=== PATIENT | male | born 1980 | race Caucasian/White ===

== ENCOUNTER 2016-07-08 23:58 | Emergency (ER) | payer OTHER ==
[~2016-07-08] VITALS: Ht 182.9 cm; Wt 97.5 kg
[2016-07-09 00:13] VITALS: BP 130/79
== END 2016-07-09 02:00 | disposition left against medical advice (07) ==
LOC: ER 07-09 00:04
DX: S09.90XA Unspecified injury of head, initial encounter (principal); W22.8XXA Striking against or struck by other objects, initial encounter; Y93.89 Activity, other specified; Y92.89 Other specified places as the place of occurrence of the external cause; Y99.8 Other external cause status
CPT/HCPCS: A4606; Z7610

== ENCOUNTER 2016-08-20 21:17 | Emergency (ER) | payer OTHER ==
[~2016-08-20] VITALS: Ht 180.3 cm; Wt 90.7 kg
--- NOTE | 2016-08-20 21:30 | NUR ---
PT SELF PRESENTS TO ER BED 15. C/O SI AND HI. PLAN ON RUNNING THROUGH TRAFFIC. PT APPEARS AGITATED. DENIES PAIN. STABLE VITALS. AWAITING MD BRADY.
--- NOTE | 2016-08-20 21:55 | NUR ---
YOUTH ACCOMMODATION SUPPORT WORKER AT BEDSIDE FOR BLOOD DRAW.
[2016-08-20 22:04] LABS: BASOPHILS # (AUTO) 0.1 /CMM (0.0-0.2); BASOPHILS % (AUTO) 0.7 % (0.0-2.0); EOSINOPHILS # (AUTO) 0.2 /CMM (0.0-0.7); EOSINOPHILS % (AUTO) 1.9 % (0.0-6.0); HEMATOCRIT 48 % (39-51); LYMPHOCYTES # (AUTO) 2.6 /CMM (0.8-4.8); LYMPHOCYTES % (AUTO) 22.8 % (20.0-44.0); MEAN CORPUSCULAR HEMOGLOBIN 30 PG (26.0-33.0); MEAN CORPUSCULAR HGB CONC 33 g/dl (31.0-36.0); MEAN CORPUSCULAR VOLUME 89 fL (80-96); MONOCYTES # (AUTO) 0.5 /CMM (0.1-1.30); MONOCYTES % (AUTO) 4.3 % (2.0-12.0); NEUTROPHILS # (AUTO) 8.1 /CMM (1.8-8.9); NEUTROPHILS % (AUTO) 70.3 % (43.0-81.0); PLATELET COUNT (AUTO) 370 /CMM (150-450); RDW COEFFICIENT OF VARIATION 13.8 (11.5-15.0); RED BLOOD CELL COUNT(AUTO) 5.38 MIL/uL (4.5-6.0); WHITE BLOOD COUNT (AUTO) 11.6 K/uL (4.3-11.0)
--- NOTE | 2016-08-20 22:05 | NUR ---
PT REFUSING TO PROVIDE URINE SAMPLE. CURSING ON STAFF.
[2016-08-20 22:15] LABS: CALCIUM, SERUM 9.1 mg/dL (8.5-10.1); CREATININE 0.9 mg/dL (0.6-1.3); POTASSIUM 3.6 mmol/L (3.5-5.1)
[2016-08-20 22:19] LABS: ALBUMIN 4.1 g/dL (3.4-5.0); BILIRUBIN,DIRECT 0.1 mg/dL (0.0-0.2); BILIRUBIN,TOTAL 0.3 mg/dL (0.2-1.0); SALICYLATE 4.7 mg/dL (2.8-20.0); TOTAL PROTEIN, SERUM 7.9 g/dL (6.4-8.2)
[2016-08-20 23:21] LABS: APPEARANCE,URINE CLEAR (CLEAR); BILIRUBIN,URINE NEGATIVE (NEGATIVE); BLOOD, URINE TRACE Ery/uL (NEGATIVE); COLOR,URINE YELLOW (YELLOW); KETONES,URINE NEGATIVE (NEGATIVE); LEUKOCYTE ESTERASE ,URINE NEGATIVE (NEGATIVE); NITRITE, URINE NEGATIVE (NEGATIVE); PROTEIN,URINE NEGATIVE (NEGATIVE); UGLUCOSE NEGATIVE (NEGATIVE); UROBILINOGEN,URINE 0.2 EU/dL (0.2)
--- NOTE | 2016-08-20 23:22 | NUR ---
report to charge nurse meng for piedad.
[2016-08-20 23:33] LABS: CANNABINOID, URINE NEGATIVE (NEGATIVE); PHENCYCLIDINE SCREEN,URINE NEGATIVE (NEGATIVE)
--- NOTE | 2016-08-20 23:48 | NUR ---
CALLED ART FOR PSYCH EVAL, ETA 1 HOUR
[2016-08-20 23:54] LABS: WBC,URINE 0-2 /HPF (0-3)
[2016-08-20 23:55] LABS: ADD URINE CULTURE NO; BACTERIA,URINE None seen /HPF (None Seen); SQUAMOUS EPITHELIAL CELL,UR Rare /HPF (None Seen)
--- NOTE | 2016-08-21 00:59 | NUR ---
patient resting in er bed, nad noted, will continue to monitor monitor
[2016-08-21 02:13] VITALS: BP 141/60
--- NOTE | 2016-08-21 02:33 | NUR ---
report given to [facility] for report for piedad pt will go to 3 [facility] 302.2 md [place] 1865 for DTS
--- NOTE | 2016-08-21 03:01 | NUR ---
CALLED CHARLY FOR TRANSPORT TO [facility], ETA 60-90 MIN
--- NOTE | 2016-08-21 04:50 | NUR ---
report given to emt for tranasport.
== END 2016-08-21 04:51 ==
LOC: ER 21:27
DX: R45.851 Suicidal ideations (principal); F20.9 Schizophrenia, unspecified
CPT/HCPCS: 36415; 80048; 80076; 80305; 80329; 81001; 85025; 99285; A4606; G0480 ×2; Z7610; 81000-TC; G6039-TC

== ENCOUNTER → 2019-03-10 | Emergency (ER) | payer OTHER ==
[~2019-03-10] VITALS: Ht 172.7 cm; Wt 75.7 kg
--- NOTE | 2019-03-10 03:06 | NUR ---
BIB AMBULANCE DUE TO PATIENT WANTED TO INTO TRAFFIC. PUT ON BED COMFORTABLY. POLICE AT BEDSIDE INTEROGATING THE PATIENT.
--- NOTE | 2019-03-10 03:13 | NUR ---
SEEN AND EXAMINED BY
[2019-03-10 03:30] LABS: APPEARANCE,URINE Clear (CLEAR); BILIRUBIN,URINE Negative (NEGATIVE); BLOOD, URINE Moderate Ery/uL (NEGATIVE); COLOR,URINE Yellow (YELLOW); KETONES,URINE Trace (NEGATIVE); LEUKOCYTE ESTERASE ,URINE Negative (NEGATIVE); NITRITE, URINE Negative (NEGATIVE); PH,URINE 5.5 (5.0-8.0); PROTEIN,URINE Negative (NEGATIVE); UGLUCOSE Negative (NEGATIVE); UROBILINOGEN,URINE 0.2 EU/dL (0.2)
[2019-03-10 03:37] LABS: BASOPHILS # (AUTO) 0.1 /CMM (0.0-0.2); BASOPHILS % (AUTO) 1.2 % (0.0-2.0); EOSINOPHILS % (AUTO) 0.1 % (0.0-6.0); HEMATOCRIT 48 % (39-51); HEMOGLOBIN 16.4 g/dL (13.5-17.5); LYMPHOCYTES # (AUTO) 2.9 /CMM (0.8-4.8); LYMPHOCYTES % (AUTO) 25.5 % (20.0-44.0); MEAN CORPUSCULAR HGB CONC 34 g/dl (31.0-36.0); MEAN CORPUSCULAR VOLUME 90 fL (80-96); MONOCYTES # (AUTO) 0.6 /CMM (0.1-1.30); NEUTROPHILS # (AUTO) 7.8 /CMM (1.8-8.9); NEUTROPHILS % (AUTO) 68.2 % (43.0-81.0); PLATELET COUNT (AUTO) 407 /CMM (150-450); RED BLOOD CELL COUNT(AUTO) 5.27 MIL/uL (4.5-6.0); WHITE BLOOD COUNT (AUTO) 11.5 K/uL (4.3-11.0)
[2019-03-10 03:40] LABS: CALCIUM, SERUM 8.2 mg/dL (8.5-10.1); POTASSIUM 3.6 mmol/L (3.5-5.1)
[2019-03-10 03:50] LABS: BACTERIA,URINE None seen /HPF (None Seen); SQUAMOUS EPITHELIAL CELL,UR Few /HPF (None Seen); WBC,URINE 0-2 /HPF (0-3)
[2019-03-10 03:53] LABS: ALBUMIN 4.3 g/dL (3.4-5.0); BILIRUBIN,DIRECT 0.1 mg/dL (0.0-0.2); BILIRUBIN,TOTAL 0.2 mg/dL (0.2-1.0); SALICYLATE 3.5 mg/dL (2.8-20.0); TOTAL PROTEIN, SERUM 8.3 g/dL (6.4-8.2)
[2019-03-10 05:42] VITALS: BP 120/83
--- NOTE | 2019-03-10 10:42 | NUR ---
Patient eloped from facility. ER MD notified.
== END | disposition left against medical advice (07) ==
LOC: ER 02:42
DX: R45.851 Suicidal ideations (principal); F17.200 Nicotine dependence, unspecified, uncomplicated
CPT/HCPCS: 36415; 80048; 80076; 80305; 80307; 80329; 81001; 85025; 99284; 99406; G0480; 81000-TC

== ENCOUNTER 2021-03-26 23:52 | Emergency (ER) | payer OTHER ==
--- NOTE | 2021-03-27 01:44 | NUR ---
CALLED FOR TRIAGE NOT IN WAITNG ROOM.
--- NOTE | 2021-03-27 02:06 | NUR ---
CALLED FOR TRIAGE NOT IN WAITING ROM
--- NOTE | 2021-03-27 02:30 | NUR ---
CALLED FOR TRIAGE NOT IN WAITING ROOM.
== END 2021-03-27 03:07 | disposition left against medical advice (07) ==
LOC: ER 23:55
DX: Z53.21 Procedure and treatment not carried out due to patient leaving prior to being seen by health care provider (principal)

== ENCOUNTER 2021-03-27 07:27 | Emergency (ER) | payer OTHER ==
[~2021-03-27] VITALS: Ht 180.3 cm; Wt 117.9 kg
--- NOTE | 2021-03-27 07:40 | NUR ---
Patient came in to the er c/o +SI " i want to run through traffic", denies HI. On room air, breathing evenly and unlabored. Kept comfortable, will continue to monitor accordingly.
--- NOTE | 2021-03-27 07:53 | NUR ---
urine collected and sent to lab.
[2021-03-27 08:24] LABS: BASOPHILS # (AUTO) 0.1 K/uL (0.0-0.2); BASOPHILS % (AUTO) 0.7 % (0.0-2.0); EOSINOPHILS % (AUTO) 2.2 % (0.0-6.0); HEMATOCRIT 49 % (39-51); HEMOGLOBIN 16.8 g/dL (13.5-17.5); LYMPHOCYTES # (AUTO) 4.1 K/uL (0.8-4.8); LYMPHOCYTES % (AUTO) 36.4 % (20.0-44.0); MEAN CORPUSCULAR HGB CONC 34 g/dl (31.0-36.0); MEAN CORPUSCULAR VOLUME 90 fL (80-96); MONOCYTES # (AUTO) 0.8 K/uL (0.1-1.30); NEUTROPHILS # (AUTO) 6.1 K/uL (1.8-8.9); NEUTROPHILS % (AUTO) 53.7 % (43.0-81.0); PLATELET COUNT (AUTO) 415 K/uL (150-450); RED BLOOD CELL COUNT(AUTO) 5.48 MIL/uL (4.5-6.0); WHITE BLOOD COUNT (AUTO) 11.4 K/uL (4.3-11.0)
[2021-03-27 08:25] LABS: BILIRUBIN,URINE NEGATIVE (NEGATIVE); COLOR,URINE YELLOW (YELLOW); LEUKOCYTE ESTERASE ,URINE NEGATIVE (NEGATIVE); NITRITE, URINE NEGATIVE (NEGATIVE); PROTEIN,URINE TRACE mg/dl (NEGATIVE); UGLUCOSE NEGATIVE (NEGATIVE); UROBILINOGEN,URINE 0.2 EU/dL (0.2)
[2021-03-27 08:30] LABS: BACTERIA,URINE None seen /HPF (None Seen); SQUAMOUS EPITHELIAL CELL,UR Rare /HPF (None Seen); WBC,URINE 0-2 /HPF (0-3)
[2021-03-27 08:38] LABS: CALCIUM, SERUM 9.2 mg/dL (8.5-10.1); CARBON DIOXIDE 30 mmol/L (21-32); CHLORIDE 106 mmol/L (98-107); CREATININE 1.1 mg/dL (0.6-1.3); GLUCOSE 119 mg/dL (74-106); POTASSIUM 3.7 mmol/L (3.5-5.1); SODIUM SERUM 145 mmol/L (136-145); UREA NITROGEN, BLOOD 11 mg/dL (7-18)
[2021-03-27 08:44] LABS: ALANINE AMINOTRANSFERASE 80 U/L (12-78); ALBUMIN 4.1 g/dL (3.4-5.0); ALCOHOL, BLOOD < 3 mg/dL (0-0); ALKALINE PHOSPHATASE 125 U/L (46-116); ASPARTATE AMINOTRANSFERASE 24 U/L (15-37); BILIRUBIN,DIRECT 0.1 mg/dL (0.0-0.2); BILIRUBIN,TOTAL 0.4 mg/dL (0.2-1.0); TOTAL PROTEIN, SERUM 8.5 g/dL (6.4-8.2)
--- NOTE | 2021-03-27 09:08 | NUR ---
FAXED CLINICALS TO [facility].
--- NOTE | 2021-03-27 11:10 | NUR ---
PT ACCEPTED TO [facility] UNDER DR. BRINK.
--- NOTE | 2021-03-27 11:12 | NUR ---
[facility] CALLED ETA 60 MINS PER SHANTEL.
[2021-03-27 11:17] VITALS: BP 122/71
--- NOTE | 2021-03-27 11:17 | NUR ---
Called [facility] and spoke to Zoey OLMEDO for piedad.
--- NOTE | 2021-03-27 11:57 | NUR ---
patient picked up by private ambulance in no distress going to [facility].
== END 2021-03-27 11:57 ==
LOC: ER 07:47
DX: R45.851 Suicidal ideations (principal); F20.9 Schizophrenia, unspecified; F17.200 Nicotine dependence, unspecified, uncomplicated; Z20.822 Contact with and (suspected) exposure to COVID-19
CPT/HCPCS: 36415; 80048; 80076; 80143; 80307; 80320; 81001; 85025; 87426; 99285; C9803; G0480

== ENCOUNTER 2021-05-12 15:19 | Emergency (ER) | payer OTHER ==
[~2021-05-12] VITALS: Ht 180.3 cm; Wt 117.9 kg
--- NOTE | 2021-05-12 15:19 | NUR ---
PT BIB [address],C/O SI,PLAN IS TO RUN INTO TRAFFIC. REQUESTING PSYCH ADMISSION. PT IS AAOX4, NOT IN RESPIRATORY DISTRESS, V/S STABLE, KEPT RESTED AND COMFORTABLE. SITTER AT BEDSIDE. WILL CONTINUE TO MONITOR.
--- NOTE | 2021-05-12 15:23 | NUR ---
PT SEEN AND EXAMINED BY ADE ANTHONY.
--- NOTE | 2021-05-12 15:42 | NUR ---
ER PHLEB AT BEDSIDE FOR BLOOD DRAW.
--- NOTE | 2021-05-12 15:50 | NUR ---
URINE SPECIMEN COLLECTED AND SENT TO LAB.
[2021-05-12] MEDS ORDERED: OLANZAPINE 5 MG TABLET PO ONE ×2 (16:00)
[2021-05-12 16:05] LABS: BASOPHILS # (AUTO) 0.1 K/uL (0.0-0.2); BASOPHILS % (AUTO) 0.4 % (0.0-2.0); EOSINOPHILS % (AUTO) 1.5 % (0.0-6.0); HEMATOCRIT 47 % (39-51); HEMOGLOBIN 15.8 g/dL (13.5-17.5); LYMPHOCYTES # (AUTO) 2.6 K/uL (0.8-4.8); LYMPHOCYTES % (AUTO) 17.3 % (20.0-44.0); MEAN CORPUSCULAR HGB CONC 34 g/dl (31.0-36.0); MEAN CORPUSCULAR VOLUME 90 fL (80-96); MONOCYTES # (AUTO) 1.1 K/uL (0.1-1.30); MONOCYTES % (AUTO) 7.1 % (2.0-12.0); NEUTROPHILS # (AUTO) 11.3 K/uL (1.8-8.9); NEUTROPHILS % (AUTO) 73.7 % (43.0-81.0); PLATELET COUNT (AUTO) 453 K/uL (150-450); RED BLOOD CELL COUNT(AUTO) 5.17 MIL/uL (4.5-6.0); WHITE BLOOD COUNT (AUTO) 15.3 K/uL (4.3-11.0)
[2021-05-12] MEDS ORDERED: OLANZAPINE 5 MG TABLET ONE (16:06)
[2021-05-12 16:16] LABS: CALCIUM, SERUM 8.7 mg/dL (8.5-10.1); CARBON DIOXIDE 20 mmol/L (21-32); CHLORIDE 101 mmol/L (98-107); CREATININE 1.2 mg/dL (0.6-1.3); GLUCOSE 106 mg/dL (74-106); SODIUM SERUM 138 mmol/L (136-145); UREA NITROGEN, BLOOD 9 mg/dL (7-18)
[2021-05-12 16:25] LABS: ALANINE AMINOTRANSFERASE 65 U/L (12-78); ALBUMIN 4.2 g/dL (3.4-5.0); ALCOHOL, BLOOD 39 mg/dL (0-0); ALKALINE PHOSPHATASE 100 U/L (46-116); ASPARTATE AMINOTRANSFERASE 31 U/L (15-37); BILIRUBIN,DIRECT 0.2 mg/dL (0.0-0.2); BILIRUBIN,TOTAL 0.7 mg/dL (0.2-1.0); TOTAL PROTEIN, SERUM 8.4 g/dL (6.4-8.2)
[2021-05-12 16:27] LABS: ACETAMINOPHEN < 0 ug/ml (10-30)
--- NOTE | 2021-05-12 16:44 | NUR ---
COVID ANTIGEN SWAB DONE AND SENT TO THE LAB
[2021-05-12 17:14] LABS: COLOR,URINE YELLOW (YELLOW); LEUKOCYTE ESTERASE ,URINE NEGATIVE (NEGATIVE); NITRITE, URINE NEGATIVE (NEGATIVE); PROTEIN,URINE 30 mg/dl (NEGATIVE); UGLUCOSE NEGATIVE (NEGATIVE)
[2021-05-12 17:27] LABS: BILIRUBIN,URINE SMALL (NEGATIVE)
[2021-05-12 17:28] LABS: BACTERIA,URINE 1+ /HPF (None Seen); RBC,URINE 21-50 /HPF (0-2); SQUAMOUS EPITHELIAL CELL,UR Few /HPF (None Seen); WBC,URINE 0-2 /HPF (0-3)
[2021-05-12 17:29] LABS: COARSE GRANULAR CASTS,URINE Few /LPF (None Seen); URINE AMORPHOUS URATE Few /HPF (None Seen)
[2021-05-12] MEDS ORDERED: POTASSIUM CHLORIDE 20 MEQ TAB.PRT.SR PO ONE ×2 (17:30→17:39)
[2021-05-12] MEDS ORDERED: CEPHALEXIN MONOHYDRATE 500 MG CAPSULE PO ONE ×2 (17:39→18:00)
[2021-05-12] MEDS ORDERED: LIDOCAINE /MPF 1% VIAL 5 ML VIAL ONE (17:40)
[2021-05-12] MEDS ORDERED: CEFTRIAXONE 1 G VIAL ONE (17:40)
[2021-05-12] MEDS ORDERED: CEFTRIAXONE 1 G VIAL IM ONE (18:00)
--- NOTE | 2021-05-12 22:58 | NUR ---
EDD - CRISIS TEAM AT BEDSIDE FOR EVAL.
--- NOTE | 2021-05-13 08:00 | NUR ---
THE PATIENT IS RECEIVED IN ER BED #14. SLEEPING, RESPONSIVE TO VERBAL STIMULI. RESPIRATION REGULAR AND UNLABORED. WILL CONTINUE TO MONITOR THE PATIENT.
--- NOTE | 2021-05-13 08:55 | NUR ---
ELAINE ([phone]) CALLED FROM [facility] AND WAS NOTIFIED OF PT STATUS. WAS INSTRUCTED TO BEGIN A COVID PCR TEST IN ORDER FOR PT TO BE ACCEPTED. THE PCR RESULT DOES NOT HAVE TO BE RESULTED BUT DOES NEED TO BE PENDING FOR ACCEPTANCE.
--- NOTE | 2021-05-13 09:10 | NUR ---
COVID PCR SWAB DONE AND SENT TO THE LAB
--- NOTE | 2021-05-13 13:00 | NUR ---
PT GOT ACCEPTED TO [place], UNDER DR. DALLAS. [facility] 124A NUMBER FOR REPORT [phone]
[2021-05-13 13:05] VITALS: BP 129/70
--- NOTE | 2021-05-13 13:12 | NUR ---
CALLED [facility] AND SET UP S TRANSPORT TO [place]. ETA [phone]
--- NOTE | 2021-05-13 13:16 | NUR ---
REPORT GIVEN TO AMOL OLMEDO OF [facility].
--- NOTE | 2021-05-13 14:00 | NUR ---
TRANSPORTED TO [facility] IN STABLE CONDITION.
== END 2021-05-13 14:00 ==
LOC: ER 15:26
DX: R45.851 Suicidal ideations (principal); E87.6 Hypokalemia; N39.0 Urinary tract infection, site not specified; Z20.822 Contact with and (suspected) exposure to COVID-19; F20.9 Schizophrenia, unspecified; F31.9 Bipolar disorder, unspecified
CPT/HCPCS: 36415; 80048; 80076; 80143; 80307; 80320; 81001; 85025; 87426; 96372; 99285; C9803 ×2; J0696; J3490; U0003; G0480

== ENCOUNTER 2021-05-18 13:38 | Emergency (ER) | payer OTHER ==
[~2021-05-18] VITALS: Ht 180.3 cm; Wt 108.0 kg
--- NOTE | 2021-05-18 15:06 | NUR ---
COVID SAMPLE OBTAINED AND SENT TO LAB
--- NOTE | 2021-05-18 15:07 | NUR ---
URINE COLLECTED AND SENT TO LAB
[2021-05-18 15:24] LABS: BASOPHILS # (AUTO) 0.1 K/uL (0.0-0.2); BASOPHILS % (AUTO) 0.4 % (0.0-2.0); EOSINOPHILS % (AUTO) 0.8 % (0.0-6.0); HEMATOCRIT 48 % (39-51); HEMOGLOBIN 16.5 g/dL (13.5-17.5); LYMPHOCYTES # (AUTO) 4.3 K/uL (0.8-4.8); LYMPHOCYTES % (AUTO) 30.3 % (20.0-44.0); MEAN CORPUSCULAR HGB CONC 34 g/dl (31.0-36.0); MEAN CORPUSCULAR VOLUME 91 fL (80-96); MONOCYTES # (AUTO) 1.1 K/uL (0.1-1.30); MONOCYTES % (AUTO) 7.8 % (2.0-12.0); NEUTROPHILS # (AUTO) 8.7 K/uL (1.8-8.9); NEUTROPHILS % (AUTO) 60.7 % (43.0-81.0); PLATELET COUNT (AUTO) 450 K/uL (150-450); RED BLOOD CELL COUNT(AUTO) 5.34 MIL/uL (4.5-6.0); WHITE BLOOD COUNT (AUTO) 14.3 K/uL (4.3-11.0)
[2021-05-18 15:45] LABS: BILIRUBIN,URINE SMALL (NEGATIVE); COLOR,URINE YELLOW (YELLOW); LEUKOCYTE ESTERASE ,URINE NEGATIVE (NEGATIVE); NITRITE, URINE NEGATIVE (NEGATIVE); PROTEIN,URINE TRACE mg/dl (NEGATIVE); UGLUCOSE NEGATIVE (NEGATIVE); UROBILINOGEN,URINE 0.2 EU/dL (0.2)
[2021-05-18 15:48] LABS: ALANINE AMINOTRANSFERASE 88 U/L (12-78); ALBUMIN 4.1 g/dL (3.4-5.0); ALCOHOL, BLOOD 60 mg/dL (0-0); ALKALINE PHOSPHATASE 100 U/L (46-116); ASPARTATE AMINOTRANSFERASE 27 U/L (15-37); BILIRUBIN,DIRECT 0.1 mg/dL (0.0-0.2); BILIRUBIN,TOTAL 0.2 mg/dL (0.2-1.0); CALCIUM, SERUM 8.8 mg/dL (8.5-10.1); CARBON DIOXIDE 29 mmol/L (21-32); CHLORIDE 106 mmol/L (98-107); GLUCOSE 130 mg/dL (74-106); POTASSIUM 3.8 mmol/L (3.5-5.1); SODIUM SERUM 145 mmol/L (136-145); TOTAL PROTEIN, SERUM 8.9 g/dL (6.4-8.2); UREA NITROGEN, BLOOD 12 mg/dL (7-18)
[2021-05-18 15:50] LABS: ACETAMINOPHEN < 10 ug/ml (10-30)
--- NOTE | 2021-05-18 16:15 | NUR ---
The patientbibself c/o si with plan to run into traffic, denies hi. Wants to go to [facility] vol. Denies pain. In room air and denies SOB. Respiration regular and unlabored. Will continue to monitor the patient.
[2021-05-18 17:04] LABS: BACTERIA,URINE M /HPF (None Seen); SQUAMOUS EPITHELIAL CELL,UR None Seen /HPF (None Seen); WBC,URINE 0-2 /HPF (0-3)
--- NOTE | 2021-05-18 17:39 | NUR ---
FAXED CLINICALS TO [facility]
[2021-05-18 20:15] VITALS: BP 144/70
--- NOTE | 2021-05-18 20:16 | NUR ---
patient alert and oriented resting comfortably no complaints at this time.
--- NOTE | 2021-05-18 22:27 | NUR ---
PT ACCEPTED AT [facility] UNDER THE CARE OF DR. CASTRO. PT IS GOING TO UNIT 2. CALL [phone] FOR REPORT.
--- NOTE | 2021-05-18 22:29 | NUR ---
[facility] ETA: 15MIN
--- NOTE | 2021-05-18 22:47 | NUR ---
CALLED TO GIVE REPORT. CANT ACCEPT CALL AT THIS TIME D/T SHIFT CHANGE REPORT. WILL CALL BACK
--- NOTE | 2021-05-18 22:51 | NUR ---
[facility] AT BED SIDE TO NEWS PHOTOGRAPHER THE PT
== END 2021-05-18 23:12 ==
LOC: ER 13:42
DX: R45.851 Suicidal ideations (principal); F10.10 Alcohol abuse, uncomplicated; F12.10 Cannabis abuse, uncomplicated; Y90.3 Blood alcohol level of 60-79 mg/100 ml; Z20.822 Contact with and (suspected) exposure to COVID-19; F20.9 Schizophrenia, unspecified; Z59.00 Homelessness unspecified
CPT/HCPCS: 36415; 80048; 80076; 80143; 80307; 80320; 81001; 85025; 87426; 99285; C9803; G0480

== ENCOUNTER 2021-06-19 07:47 | Emergency (ER) | payer OTHER ==
[~2021-06-19] VITALS: Ht 180.3 cm; Wt 108.0 kg
--- NOTE | 2021-06-19 08:00 | NUR ---
PT BIB SELF C/O SI "I WANT TO RUN THROUGH TRAFFIC" REQUESTING VOLUNTARY PSYCH ADMISSION, PT IS AAOX4, NOT IN RESPIRATORY DISTRESS, V/S STABLE, KEPT RESTED AND COMFORTABLE. WILL CONTINUE TO MONITOR.
--- NOTE | 2021-06-19 08:09 | NUR ---
CALLED NO RESPONSE
--- NOTE | 2021-06-19 09:25 | NUR ---
URINE SPECIMEN OBTAINED AND SENT TO LAB.
--- NOTE | 2021-06-19 09:31 | NUR ---
URINE SPECIMEN OBTAINED AND SENT TO LAB
[2021-06-19 10:06] LABS: BASOPHILS # (AUTO) 0.1 K/uL (0.0-0.2); BASOPHILS % (AUTO) 0.7 % (0.0-2.0); EOSINOPHILS % (AUTO) 1.6 % (0.0-6.0); HEMATOCRIT 45 % (39-51); HEMOGLOBIN 15.2 g/dL (13.5-17.5); LYMPHOCYTES # (AUTO) 4.3 K/uL (0.8-4.8); LYMPHOCYTES % (AUTO) 38.3 % (20.0-44.0); MEAN CORPUSCULAR HGB CONC 34 g/dl (31.0-36.0); MEAN CORPUSCULAR VOLUME 90 fL (80-96); MONOCYTES # (AUTO) 0.8 K/uL (0.1-1.30); MONOCYTES % (AUTO) 7.5 % (2.0-12.0); NEUTROPHILS # (AUTO) 5.8 K/uL (1.8-8.9); NEUTROPHILS % (AUTO) 51.9 % (43.0-81.0); PLATELET COUNT (AUTO) 384 K/uL (150-450); RED BLOOD CELL COUNT(AUTO) 5.02 MIL/uL (4.5-6.0); WHITE BLOOD COUNT (AUTO) 11.2 K/uL (4.3-11.0)
[2021-06-19 10:14] LABS: BILIRUBIN,URINE NEGATIVE (NEGATIVE); COLOR,URINE YELLOW (YELLOW); LEUKOCYTE ESTERASE ,URINE NEGATIVE (NEGATIVE); NITRITE, URINE NEGATIVE (NEGATIVE); PROTEIN,URINE NEGATIVE (NEGATIVE); UGLUCOSE NEGATIVE (NEGATIVE); UROBILINOGEN,URINE 0.2 EU/dL (0.2)
[2021-06-19 10:17] LABS: BACTERIA,URINE Rare /HPF (None Seen); SQUAMOUS EPITHELIAL CELL,UR Few /HPF (None Seen); WBC,URINE NONE SEEN /HPF (0-3)
[2021-06-19 10:24] LABS: CALCIUM, SERUM 8.9 mg/dL (8.5-10.1); POTASSIUM 3.5 mmol/L (3.5-5.1)
[2021-06-19 10:33] LABS: ALBUMIN 3.7 g/dL (3.4-5.0); BILIRUBIN,DIRECT 0.1 mg/dL (0.0-0.2); BILIRUBIN,TOTAL 0.2 mg/dL (0.2-1.0); TOTAL PROTEIN, SERUM 7.6 g/dL (6.4-8.2)
--- NOTE | 2021-06-19 18:51 | NUR ---
PT GOT ACCEPTED [facility]
[2021-06-19 19:15] VITALS: BP 130/70
--- NOTE | 2021-06-19 19:33 | NUR ---
ACCEPT UNDER ADDISONSESSE REPORT [phone], ROOM NUMBER GIVEN DURING REPORT
--- NOTE | 2021-06-19 19:36 | NUR ---
UPDATE: ACCEPTED UNDER DR BRINK
--- NOTE | 2021-06-19 20:12 | NUR ---
PICKED UP BY AN AGENT FROM [facility] IN STABLE CONDITION
== END 2021-06-19 20:20 ==
LOC: ER 07:48
DX: R45.851 Suicidal ideations (principal); F17.200 Nicotine dependence, unspecified, uncomplicated; F20.9 Schizophrenia, unspecified; Z20.822 Contact with and (suspected) exposure to COVID-19
CPT/HCPCS: 36415; 80048; 80076; 80143; 80307; 80320; 81001; 85025; 87426; 99285; C9803; G0480

== ENCOUNTER 2021-07-01 14:00 | Emergency (ER) | payer OTHER ==
[~2021-07-01] VITALS: Ht 180.3 cm; Wt 106.6 kg
--- NOTE | 2021-07-01 14:45 | NUR ---
BILINGUAL SOCIAL WORKER AT BEDSIDE FOR BLOOD DRAW
--- NOTE | 2021-07-01 14:50 | NUR ---
URINE COLLECTED AND SENT TO LAB
--- NOTE | 2021-07-01 14:56 | NUR ---
COVID ANTIGEN SWAB DONE AND SENT TO LAB
[2021-07-01 15:10] LABS: BASOPHILS # (AUTO) 0.1 K/uL (0.0-0.2); BASOPHILS % (AUTO) 0.6 % (0.0-2.0); EOSINOPHILS % (AUTO) 0.4 % (0.0-6.0); HEMATOCRIT 46 % (39-51); HEMOGLOBIN 15.8 g/dL (13.5-17.5); LYMPHOCYTES # (AUTO) 2.7 K/uL (0.8-4.8); LYMPHOCYTES % (AUTO) 21.4 % (20.0-44.0); MEAN CORPUSCULAR HGB CONC 34 g/dl (31.0-36.0); MEAN CORPUSCULAR VOLUME 90 fL (80-96); MONOCYTES # (AUTO) 0.9 K/uL (0.1-1.30); NEUTROPHILS % (AUTO) 70.6 % (43.0-81.0); PLATELET COUNT (AUTO) 472 K/uL (150-450); RED BLOOD CELL COUNT(AUTO) 5.15 MIL/uL (4.5-6.0); WHITE BLOOD COUNT (AUTO) 12.7 K/uL (4.3-11.0)
[2021-07-01 15:27] LABS: BILIRUBIN,URINE SMALL (NEGATIVE); COLOR,URINE DARK YELLOW (YELLOW); LEUKOCYTE ESTERASE ,URINE NEGATIVE (NEGATIVE); NITRITE, URINE NEGATIVE (NEGATIVE); PROTEIN,URINE TRACE mg/dl (NEGATIVE); UGLUCOSE NEGATIVE (NEGATIVE); UROBILINOGEN,URINE 0.2 EU/dL (0.2)
[2021-07-01 15:28] LABS: CALCIUM, SERUM 9.4 mg/dL (8.5-10.1); CARBON DIOXIDE 27 mmol/L (21-32); CHLORIDE 103 mmol/L (98-107); CREATININE 0.9 mg/dL (0.6-1.3); GLUCOSE 102 mg/dL (74-106); SODIUM SERUM 141 mmol/L (136-145); UREA NITROGEN, BLOOD 16 mg/dL (7-18)
[2021-07-01 15:33] LABS: ALANINE AMINOTRANSFERASE 63 U/L (12-78); ALBUMIN 4.2 g/dL (3.4-5.0); ALCOHOL, BLOOD < 3 mg/dL (0-0); ALKALINE PHOSPHATASE 97 U/L (46-116); ASPARTATE AMINOTRANSFERASE 30 U/L (15-37); BILIRUBIN,DIRECT 0.2 mg/dL (0.0-0.2); BILIRUBIN,TOTAL 0.7 mg/dL (0.2-1.0); TOTAL PROTEIN, SERUM 8.6 g/dL (6.4-8.2)
[2021-07-01 16:31] LABS: BACTERIA,URINE Few /HPF (None Seen); RBC,URINE 21-50 /HPF (0-2); SQUAMOUS EPITHELIAL CELL,UR Few /HPF (None Seen); WBC,URINE 0-2 /HPF (0-3)
--- NOTE | 2021-07-01 21:58 | NUR ---
CLINICALS FAXED TO [facility]
--- NOTE | 2021-07-02 10:28 | NUR ---
PT GOT ACCEPTED TO [facility] UNDER THE CARE OF DR. YEN NUMBER FOR REPORT [phone] EXT [phone]
--- NOTE | 2021-07-02 11:28 | NUR ---
SS Consult: SS Consult requested for SI, abuse use & homelessness. The pt. is a 40-year-old Black male patient who presented to the ED with complaints of SI for the past 2 days with plan to "run into traffic". Upon SS consult, the pt. is Alert & Oriented x 4 and makes good eye contact. The pt. appears unkempt, with slow speech. Pt. has depressed mood and affect. Patient states he has auditory hallucinations. SW offered pt. voluntary psychiatric Treatment and pt. is agreeable. SW explored pt.'s living situation. Per pt. has been experiencing homelessness for 3 months and sleep "anywhere". SW explored pt.'s drug & ETOH use. Pt. states he uses Methamphetamine every other day & ETOH (1 pint /every other day)and stated it is a problem for him. SW provided pt. with addiction resources to follow up after psych treatment and pt. is agreeable. HETAL explored pt.'s mental health Hx. Per the pt. he has been diagnosed with "Schizoaffective Disorder" in the past and has been prescribed Seroquel, Trazedone & Zoloft and last took his meds 1 week ago. Pt. denies current HI and denies VH. Per pt. he is ambulatory & independent with all his ADL's. Plan: Pt. was referred [facility] [[facility] [place] [address] FAX:[phone]] for voluntary psychiatric treatment. SW provided pt. with homeless, mental health & addiction resources and pt. accepted them. Pt. signed homeless waiver and it was placed in the chart. Year-round shelters: [facility] [address] [place] [address] ; [facility] [address] [place] [address]; [facility] Hpqewwl[address]294 [facility] [address] Winter Shelters: SPA 2 | [facility] Sierrarovider: Haley aguilar [facility] Address: Confidential (call for location ) Population Served: Coed # of Beds: 57 SPA 4 | [facility] Provider: Home at Last Address: [address] [facility], [address] # of Beds: 49 Population Served: Coed SPA 6 | [facility] Provider: Home at Last Address: [address] [facility], [address] # of Beds: 49 Population Served: Coed Jovon Collins [facility]isted Provider: Fernanda Collins MTRyan Address: [address] [facility] [address] # of Beds: 20 Population Served: Women NEEL Facility Provider: Home at Last Address: [address] [facility] [address] # of Beds: 30 Population Served: Women SPA 8 | [facility] Provider: Clare Address: [address] [facility] [address] # of Beds: 65 Population Served: Coed Hygiene: [facility] [employer]: [address] [place] [facility] ; [facility] [address] [facility] ; [facility] 3573 [facility] . Food Resources: [place] [employer] [facility] at [facility]- [address] [facility]; Meet Each Need with Dignity ([facility]) [address] [facility]; [facility] Food Pantry [address] [facility]; [facility] [address] [facility]. Mental Health resources provided: [facility] [address] [place] [address] ; [facility] [address] [facility] [address], [place] [address] ; Cherie Aranda [facility], [facility] [address] [place] [address] ; [facility] [place], [place] [address] Healthcare Clinics: [facility] [address] [facility], [address] [place]. [place] ; [facility] [address] [facility] [address] [place] [address]; [facility] [address] [facility] [place] [phone]) [phone] Counseling--[facility] [address] [facility], [place] [address] (Specializes in in-depth psychotherapy for emotional distress: anxiety, depression, interpersonal conflicts, life transitions, childhood abuse) [facility] [address] [place] [address] (Assist with solving problem marital difficulties, separation & divorce, aging parents, & grief, chronic & terminal illness) [facility] [address] [place] [address] (Deal with loss & grief, anxiety, marital difficulties) Homebound/Mental Health Services [address] [facility], [address] [place] [address] (Provide in-home mental services to people who are incapable of leaving their homes) Organization for Needs of the Elderly Senior Service/Resource Center [address] [address] [facility] [place] [address] [facility] [address] [facility] [place] [address] PSYCHIATRIC OUTPATIENT SERVICES [facility] Partial Hospitalization and Intensive Outpatient Program (Managed Care and Rock Only)[address] [facility]. [facility] [phone] [facility] Partial Hospitalization and Outpatient [id number] Good[facility]. [address] [place], [place] [phone] [facility] Kns[address] [facility]. [address] [place], [place] [phone] [facility] Partial Hospitalization and Outpatient Lhobiyu35751 Emelita Zohaib [place], [phone] Substance Abuse resources provided included: [facility] Substance Abuse Self-Helpline ([facility]) ; CRI -HELP [address] [facility] [place]. [place] [phone] ; [facility] [place] [address] [facility] [address] ; [facility] Rehabilitation Program [address] Gooding [facility] [address] ; [facility] 400 [facility] [phone] ; [facility] 4940 [facility] [phone] ; [facility] 909 [facility] [phone] ; [facility] Substance Abuse Helpline([facility])-[facility] ; [facility] ; [facility] [place]; [facility] [place]; C[facility]Help [place]; [facility]; [facility] [place]; [place] [facility] [place]; [facility]'s [place] [place]; Alcoholics Anonymous -SFV; Pv-Yfol-Kkusdie ; Marijuana Anonymous -SFV; Narcotics Anonymous www.na.org;
[2021-07-02 17:55] VITALS: BP 136/81
--- NOTE | 2021-07-02 18:47 | NUR ---
report given to Mandy OLMEDO at [facility] for piedad
--- NOTE | 2021-07-02 18:50 | NUR ---
CALLED [facility] TRANSPORT AND SET UP BLS TRANSPORT TO [place] ETA [phone]
--- NOTE | 2021-07-02 19:15 | NUR ---
PER NURSE ALEX RN PT LEFT VIA AMBULANCE WITH EMT AT BEDSIDE.
== END 2021-07-02 19:17 ==
LOC: ER 14:46
DX: R45.851 Suicidal ideations (principal); R31.29 Other microscopic hematuria; F20.9 Schizophrenia, unspecified; Z20.822 Contact with and (suspected) exposure to COVID-19; Z59.01 Sheltered homelessness
CPT/HCPCS: 36415; 80048; 80076; 80143; 80307; 80320; 81001; 85025; 87426; 99285; C9803; G0480

== ENCOUNTER 2021-07-28 14:32 | Emergency (ER) | payer OTHER ==
[~2021-07-28] VITALS: Ht 180.3 cm; Wt 108.0 kg
--- NOTE | 2021-07-28 14:45 | NUR ---
URINE COLLECTED AND SENT TO THE LAB. COVID ANTIGEN SWAB DONE AND SENT TO THE LAB.
--- NOTE | 2021-07-28 14:49 | NUR ---
THE PATIENT BIBS FOR SI WITH A PLAN TO RAN TO THE TRAFFIC. DENIES HI. DENIES HAVING ANY VISUAL OR AUDITORY HALLUCINATIONS. DENIES PIN. IN ROOM AIR AND DENIES SOB. RESPIRATION REGULAR AND UNLABORED. WILL CONTINUE TO MONITOR THE PATIENT.
[2021-07-28 15:30] LABS: BASOPHILS # (AUTO) 0.1 K/uL (0.0-0.2); BASOPHILS % (AUTO) 0.7 % (0.0-2.0); HEMATOCRIT 43 % (39-51); HEMOGLOBIN 14.4 g/dL (13.5-17.5); LYMPHOCYTES % (AUTO) 29.5 % (20.0-44.0); MEAN CORPUSCULAR HGB CONC 34 g/dl (31.0-36.0); MEAN CORPUSCULAR VOLUME 90 fL (80-96); MONOCYTES # (AUTO) 0.5 K/uL (0.1-1.30); MONOCYTES % (AUTO) 5.2 % (2.0-12.0); NEUTROPHILS # (AUTO) 6.4 K/uL (1.8-8.9); NEUTROPHILS % (AUTO) 63.6 % (43.0-81.0); PLATELET COUNT (AUTO) 376 K/uL (150-450); RED BLOOD CELL COUNT(AUTO) 4.78 MIL/uL (4.5-6.0); WHITE BLOOD COUNT (AUTO) 10.1 K/uL (4.3-11.0)
[2021-07-28 15:47] LABS: ALANINE AMINOTRANSFERASE 69 U/L (12-78); ALBUMIN 3.8 g/dL (3.4-5.0); ALCOHOL, BLOOD < 3 mg/dL (0-0); ALKALINE PHOSPHATASE 79 U/L (46-116); ASPARTATE AMINOTRANSFERASE 21 U/L (15-37); BILIRUBIN,DIRECT 0.1 mg/dL (0.0-0.2); BILIRUBIN,TOTAL 0.3 mg/dL (0.2-1.0); CALCIUM, SERUM 8.7 mg/dL (8.5-10.1); CARBON DIOXIDE 28 mmol/L (21-32); CHLORIDE 104 mmol/L (98-107); GLUCOSE 97 mg/dL (74-106); POTASSIUM 4.1 mmol/L (3.5-5.1); SODIUM SERUM 138 mmol/L (136-145); TOTAL PROTEIN, SERUM 7.6 g/dL (6.4-8.2); UREA NITROGEN, BLOOD 12 mg/dL (7-18)
[2021-07-28 16:02] LABS: ACETAMINOPHEN < 2 ug/ml (10-30)
[2021-07-28 16:09] LABS: BILIRUBIN,URINE NEGATIVE (NEGATIVE); COLOR,URINE YELLOW (YELLOW); LEUKOCYTE ESTERASE ,URINE NEGATIVE (NEGATIVE); NITRITE, URINE NEGATIVE (NEGATIVE); PH,URINE 6.5 (5.0-8.0); PROTEIN,URINE NEGATIVE (NEGATIVE); UGLUCOSE NEGATIVE (NEGATIVE); UROBILINOGEN,URINE 0.2 EU/dL (0.2)
[2021-07-28 16:36] LABS: BACTERIA,URINE Few /HPF (None Seen); SQUAMOUS EPITHELIAL CELL,UR Few /HPF (None Seen); WBC,URINE 0-2 /HPF (0-3)
--- NOTE | 2021-07-28 16:59 | NUR ---
FAXED CLINICALS TO [facility] INTAKE.
--- NOTE | 2021-07-28 18:39 | NUR ---
CALLED INTAKE FOR UPDATE, STILL AWAITING BEDS IN [place] PT ON WAITLIST #5
--- NOTE | 2021-07-28 19:55 | NUR ---
PT IN ROOM EATING DINNER; TOLERATING WELL. PT IN NO ACUTE DISTRESS AT THIS TIME. SAFETY MEASURES IN PLACE.
--- NOTE | 2021-07-28 23:22 | NUR ---
[facility] TO [facility] CALL FOR [facility]: [phone] ANSARI FAXED COVID NEGATIVE RESULT
--- NOTE | 2021-07-28 23:25 | NUR ---
REPORT GIVEN TO ELIZABETH TOLENTINO FOR MANUELA. ART FROM [facility] WILL CALL TO NOTIFY TRANSPORTATION ETA
[2021-07-29 01:14] VITALS: BP 131/80
--- NOTE | 2021-07-29 01:14 | NUR ---
PATIENTS BEING TRANSFERRED TO [facility] BY
== END 2021-07-29 01:20 ==
LOC: ER 14:35
DX: R45.851 Suicidal ideations (principal); F31.9 Bipolar disorder, unspecified; F20.9 Schizophrenia, unspecified; I10 Essential (primary) hypertension; Z20.822 Contact with and (suspected) exposure to COVID-19; Z59.00 Homelessness unspecified
CPT/HCPCS: 36415; 80048; 80076; 80143; 80307; 80320; 81001; 85025; 87426; 99285; C9803; G0480

== ENCOUNTER 2021-08-28 15:44 | Emergency (ER) | payer OTHER ==
[~2021-08-28] VITALS: Ht 180.3 cm; Wt 108.0 kg
--- NOTE | 2021-08-28 15:44 | NUR ---
PT BIB SELF C/O SI "RUN THRU TRAFFIC" REQUESTING VOLUNTARY PSYCH ADMISSION. PT IS AAOX4, NOT IN RESPIRATORY DISTRESS, V/S STABLE, KEPT RESTED AND COMFORTABLE. WILL CONTINUE TO MONITOR.
--- NOTE | 2021-08-28 16:29 | NUR ---
URINAL GIVEN UNABLE TO PROVIDE URINE SPECIMEN THIS TIME.
[2021-08-28 16:58] LABS: BASOPHILS # (AUTO) 0.1 K/uL (0.0-0.2); BASOPHILS % (AUTO) 0.6 % (0.0-2.0); EOSINOPHILS % (AUTO) 1.7 % (0.0-6.0); HEMATOCRIT 47 % (39-51); HEMOGLOBIN 15.3 g/dL (13.5-17.5); LYMPHOCYTES # (AUTO) 4.1 K/uL (0.8-4.8); LYMPHOCYTES % (AUTO) 39.8 % (20.0-44.0); MEAN CORPUSCULAR HGB CONC 33 g/dl (31.0-36.0); MEAN CORPUSCULAR VOLUME 90 fL (80-96); MONOCYTES # (AUTO) 0.6 K/uL (0.1-1.30); MONOCYTES % (AUTO) 6.2 % (2.0-12.0); NEUTROPHILS # (AUTO) 5.4 K/uL (1.8-8.9); NEUTROPHILS % (AUTO) 51.7 % (43.0-81.0); PLATELET COUNT (AUTO) 474 K/uL (150-450); RED BLOOD CELL COUNT(AUTO) 5.19 MIL/uL (4.5-6.0); WHITE BLOOD COUNT (AUTO) 10.3 K/uL (4.3-11.0)
--- NOTE | 2021-08-28 17:05 | NUR ---
COVID SWAB DONE SENT TO LAB
--- NOTE | 2021-08-28 17:18 | NUR ---
URINE COLLECTED AND SENT TO LAB
[2021-08-28] MEDS ORDERED: QUETIAPINE FUMARATE 100 MG TABLET ONE (17:27)
[2021-08-28 17:34] LABS: CALCIUM, SERUM 8.9 mg/dL (8.5-10.1); CARBON DIOXIDE 24 mmol/L (21-32); CHLORIDE 105 mmol/L (98-107); CREATININE 1.1 mg/dL (0.6-1.3); GLUCOSE 85 mg/dL (74-106); POTASSIUM 3.3 mmol/L (3.5-5.1); SODIUM SERUM 142 mmol/L (136-145); UREA NITROGEN, BLOOD 12 mg/dL (7-18)
[2021-08-28 17:40] LABS: ALANINE AMINOTRANSFERASE 46 U/L (12-78); ALBUMIN 3.8 g/dL (3.4-5.0); ALCOHOL, BLOOD 4 mg/dL (0-0); ALKALINE PHOSPHATASE 99 U/L (46-116); ASPARTATE AMINOTRANSFERASE 20 U/L (15-37); BILIRUBIN,DIRECT 0.1 mg/dL (0.0-0.2); BILIRUBIN,TOTAL 0.3 mg/dL (0.2-1.0); TOTAL PROTEIN, SERUM 7.7 g/dL (6.4-8.2)
[2021-08-28 17:41] LABS: BILIRUBIN,URINE SMALL (NEGATIVE); COLOR,URINE YELLOW (YELLOW); LEUKOCYTE ESTERASE ,URINE NEGATIVE (NEGATIVE); NITRITE, URINE NEGATIVE (NEGATIVE); PROTEIN,URINE TRACE mg/dl (NEGATIVE); UGLUCOSE NEGATIVE (NEGATIVE)
[2021-08-28 17:42] LABS: ACETAMINOPHEN < 2 ug/ml (10-30)
[2021-08-28 17:56] LABS: BACTERIA,URINE Few /HPF (None Seen); RBC,URINE 21-50 /HPF (0-2); SQUAMOUS EPITHELIAL CELL,UR Few /HPF (None Seen); WBC,URINE 0-2 /HPF (0-3)
[2021-08-28] MEDS: QUETIAPINE FUMARATE 100 MG TABLET PO SCH (18:09)
--- NOTE | 2021-08-28 18:53 | NUR ---
[facility]
--- NOTE | 2021-08-28 22:06 | NUR ---
REFAXED FACESHEET [facility] CLINICALS TO [facility]
--- NOTE | 2021-08-29 00:43 | NUR ---
REFAXED FACESHEET AND CLINICALS TO [facility]. PER SOHAN, NOT RECEIVED.
--- NOTE | 2021-08-29 02:08 | NUR ---
[facility] DID NOT GET FAX. PER SOHAN, FAX TO NUMBER [phone]
--- NOTE | 2021-08-29 06:24 | NUR ---
PER SOHAN INTAKE, FAX NOT WORKING. FAX TO NUMBER [phone]
[2021-08-29] MEDS: QUETIAPINE FUMARATE 100 MG TABLET PO SCH (09:00)
--- NOTE | 2021-08-29 09:53 | NUR ---
PT ACCEPTED TO [facility] UNDER DR. CARUSO CALL [phone] FOR REPORT. WILL CALL US BACK FOR ETA OF PROCESSING SPECIALIST
--- NOTE | 2021-08-29 11:55 | NUR ---
LUNCH TRAY PROVIDED
--- NOTE | 2021-08-29 12:03 | NUR ---
REPORT GIVEN TO ANITAAL FOR MANUELA
--- NOTE | 2021-08-29 12:21 | NUR ---
[facility] CALLED FOR TRANSPORT ETA 20 MINS.
--- NOTE | 2021-08-29 12:44 | NUR ---
REPORT GIVEN TO EMT FOR PT TRANSFER TO [facility].
[2021-08-29 12:45] VITALS: BP 121/71
--- NOTE | 2021-08-29 12:45 | NUR ---
PICKED UP BY TRANSPORT IN STABLE CONDITION
== END 2021-08-29 12:45 ==
LOC: ER 15:49
DX: R45.851 Suicidal ideations (principal); F31.9 Bipolar disorder, unspecified; F25.9 Schizoaffective disorder, unspecified; E78.5 Hyperlipidemia, unspecified; I10 Essential (primary) hypertension; T43.596A Underdosing of other antipsychotics and neuroleptics, initial encounter; Z91.128 Patient's intentional underdosing of medication regimen for other reason; Y92.89 Other specified places as the place of occurrence of the external cause; F15.90 Other stimulant use, unspecified, uncomplicated; Z20.822 Contact with and (suspected) exposure to COVID-19
CPT/HCPCS: 36415; 80048; 80076; 80143; 80307; 80320; 81001; 85025; 87426; 99285; C9803; G0480

== ENCOUNTER 2022-01-13 07:24 | Emergency (ER) | payer OTHER ==
[~2022-01-13] VITALS: Ht 180.3 cm; Wt 102.1 kg
--- NOTE | 2022-01-13 07:40 | NUR ---
Patient came in to the er, voluntary admission to psych, "I want to run in front of the traffic". On room air, breathing evenly and unlabored. Colostomy bag provided. Kept comfortable, will continue to monitor accordingly. Sitter at bedside for constant monitoring.
--- NOTE | 2022-01-13 07:42 | NUR ---
COVID SWAB DONE AND SENT TO LAB
[2022-01-13 08:16] LABS: BASOPHILS # (AUTO) 0.1 K/uL (0.0-0.2); BASOPHILS % (AUTO) 0.7 % (0.0-2.0); EOSINOPHILS % (AUTO) 1.5 % (0.0-6.0); HEMATOCRIT 45 % (39-51); HEMOGLOBIN 15.3 g/dL (13.5-17.5); LYMPHOCYTES # (AUTO) 2.7 K/uL (0.8-4.8); LYMPHOCYTES % (AUTO) 28.5 % (20.0-44.0); MEAN CORPUSCULAR HGB CONC 34 g/dl (31.0-36.0); MEAN CORPUSCULAR VOLUME 87 fL (80-96); MONOCYTES # (AUTO) 0.8 K/uL (0.1-1.30); MONOCYTES % (AUTO) 8.4 % (2.0-12.0); NEUTROPHILS # (AUTO) 5.7 K/uL (1.8-8.9); NEUTROPHILS % (AUTO) 60.9 % (43.0-81.0); PLATELET COUNT (AUTO) 490 K/uL (150-450); RED BLOOD CELL COUNT(AUTO) 5.21 MIL/uL (4.5-6.0); WHITE BLOOD COUNT (AUTO) 9.3 K/uL (4.3-11.0)
[2022-01-13 08:24] LABS: CALCIUM, SERUM 8.8 mg/dL (8.5-10.1); CARBON DIOXIDE 27 mmol/L (21-32); CHLORIDE 100 mmol/L (98-107); CREATININE 0.9 mg/dL (0.6-1.3); GLUCOSE 87 mg/dL (74-106); POTASSIUM 3.1 mmol/L (3.5-5.1); SODIUM SERUM 133 mmol/L (136-145); UREA NITROGEN, BLOOD 14 mg/dL (7-18)
[2022-01-13 08:30] LABS: ALANINE AMINOTRANSFERASE 96 U/L (12-78); ALBUMIN 4.1 g/dL (3.4-5.0); ALCOHOL, BLOOD < 3 mg/dL (0-0); ALKALINE PHOSPHATASE 121 U/L (46-116); ASPARTATE AMINOTRANSFERASE 35 U/L (15-37); BILIRUBIN,DIRECT 0.3 mg/dL (0.0-0.2); BILIRUBIN,TOTAL 1.2 mg/dL (0.2-1.0); TOTAL PROTEIN, SERUM 8.7 g/dL (6.4-8.2)
[2022-01-13 08:34] LABS: ACETAMINOPHEN < 10 ug/ml (10-30)
[2022-01-13 10:08] LABS: BILIRUBIN,URINE MODERATE (NEGATIVE); COLOR,URINE YELLOW (YELLOW); LEUKOCYTE ESTERASE ,URINE NEGATIVE (NEGATIVE); NITRITE, URINE POSITIVE (NEGATIVE); PH,URINE 5.5 (5.0-8.0); PROTEIN,URINE 30 mg/dl (NEGATIVE); UGLUCOSE NEGATIVE (NEGATIVE)
--- NOTE | 2022-01-13 10:46 | NUR ---
SW met with pt. at bedside to attempt pt. interview. However, pt. is asleep and not rousable to verbal cues. SW will interview pt. at a later time.
--- NOTE | 2022-01-13 11:03 | NUR ---
HETAL faxed clinicals to [facility] [[address] [place] [address] FAX:[phone]] for voluntary psychiatric treatment.
--- NOTE | 2022-01-13 11:27 | NUR ---
FAXED CLINICALS TO [facility].
[2022-01-13 11:32] LABS: BACTERIA,URINE Few /HPF (None Seen); WBC,URINE NONE SEEN /HPF (0-3)
[2022-01-13 11:33] LABS: SQUAMOUS EPITHELIAL CELL,UR None Seen /HPF (None Seen); URINE AMORPHOUS URATE Many /HPF (None Seen)
[2022-01-13 12:00] VITALS: BP 131/74
--- NOTE | 2022-01-13 12:03 | NUR ---
[facility] CALL [phone] ADOLESCENT COUNSELOR ETA [phone]
--- NOTE | 2022-01-13 12:22 | NUR ---
REPORT GIVEN TO CLIFF OLMEDO FOR MANUELA
--- NOTE | 2022-01-13 12:25 | NUR ---
PICKED UP BY [facility] IN ST[facility] CONDITION
== END 2022-01-13 12:32 ==
LOC: ER 07:29
DX: R45.851 Suicidal ideations (principal); F15.151 Other stimulant abuse with stimulant-induced psychotic disorder with hallucinations; F31.9 Bipolar disorder, unspecified; F20.9 Schizophrenia, unspecified; I10 Essential (primary) hypertension; D75.839 Thrombocytosis, unspecified
CPT/HCPCS: 99285; 85025; 80048; 87086; 80076; 81001; 36415; 87426; 80143; 80320; 80307; C9803; G0480

== ENCOUNTER 2022-05-28 10:22 | Emergency (ER) | payer MEDICAID, OTHER ==
[~2022-05-28] VITALS: Ht 172.7 cm; Wt 99.8 kg
--- NOTE | 2022-05-28 10:30 | NUR ---
Pt wants to go voluntary to [facility] [place] of [facility] "Been there before" Officer Ramsey wanded patient for safety. Changed to hospital gown and belongings secured in locker. Medical Clearance per MD order
[2022-05-28 11:34] LABS: BASOPHILS % (AUTO) 0.3 % (0.0-2.0); EOSINOPHILS % (AUTO) 0.9 % (0.0-6.0); HEMATOCRIT 50 % (39-51); HEMOGLOBIN 16.5 g/dL (13.5-17.5); LYMPHOCYTES % (AUTO) 24.2 % (20.0-44.0); MEAN CORPUSCULAR HGB CONC 33 g/dl (31.0-36.0); MEAN CORPUSCULAR VOLUME 89 fL (80-96); MONOCYTES # (AUTO) 0.8 K/uL (0.1-1.30); NEUTROPHILS # (AUTO) 8.6 K/uL (1.8-8.9); NEUTROPHILS % (AUTO) 68.6 % (43.0-81.0); PLATELET COUNT (AUTO) 433 K/uL (150-450); RED BLOOD CELL COUNT(AUTO) 5.63 MIL/uL (4.5-6.0); WHITE BLOOD COUNT (AUTO) 12.6 K/uL (4.3-11.0)
[2022-05-28 11:52] LABS: ALANINE AMINOTRANSFERASE 56 U/L (12-78); ALBUMIN 4.4 g/dL (3.4-5.0); ALKALINE PHOSPHATASE 109 U/L (46-116); ASPARTATE AMINOTRANSFERASE 38 U/L (15-37); BILIRUBIN,DIRECT 0.2 mg/dL (0.0-0.2); BILIRUBIN,TOTAL 0.9 mg/dL (0.2-1.0); CALCIUM, SERUM 8.8 mg/dL (8.5-10.1); CARBON DIOXIDE 28 mmol/L (21-32); CHLORIDE 101 mmol/L (98-107); GLUCOSE 90 mg/dL (74-106); POTASSIUM 3.1 mmol/L (3.5-5.1); SODIUM SERUM 139 mmol/L (136-145); TOTAL PROTEIN, SERUM 9.2 g/dL (6.4-8.2); UREA NITROGEN, BLOOD 17 mg/dL (7-18)
--- NOTE | 2022-05-28 12:00 | NUR ---
Lunch provided ate 100%
[2022-05-28 12:07] LABS: ACETAMINOPHEN 0 ug/ml (10-30)
[2022-05-28 12:08] LABS: ALCOHOL, BLOOD < 3 mg/dL (0-0)
[2022-05-28 12:38] LABS: BILIRUBIN,URINE 2+ (NEGATIVE); COLOR,URINE DARK YELLOW (YELLOW); LEUKOCYTE ESTERASE ,URINE NEGATIVE (NEGATIVE); NITRITE, URINE NEGATIVE (NEGATIVE); PROTEIN,URINE TRACE mg/dl (NEGATIVE); UGLUCOSE NEGATIVE (NEGATIVE)
[2022-05-28 13:46] LABS: BACTERIA,URINE None seen /HPF (None Seen); SQUAMOUS EPITHELIAL CELL,UR None Seen /HPF (None Seen); WBC,URINE 0-2 /HPF (0-3)
[2022-05-28 13:47] LABS: MUCUS,URINE Few /LPF (None Seen)
--- NOTE | 2022-05-28 15:35 | NUR ---
COLOSTOMY BAG CHANGED, PROCEDURE EULOGIO WELL
--- NOTE | 2022-05-28 16:18 | NUR ---
Medically Cleared. Clinicals faxed to [facility] [place] [facility] for voluntary psych admission
[2022-05-28] MEDS ORDERED: POTASSIUM CHLORIDE 20 MEQ TAB.PRT.SR PO ONE ×3 (17:30→20:51)
--- NOTE | 2022-05-28 21:46 | NUR ---
patient going to [facility] [phone]
--- NOTE | 2022-05-28 21:48 | NUR ---
[facility] CALLED FOR TRANSPORT. ETA 2.5 HRS.
--- NOTE | 2022-05-28 21:53 | NUR ---
report given to Dallas OLMEDO to continue care.
[2022-05-28 21:54] VITALS: BP 128/65
--- NOTE | 2022-05-28 23:57 | NUR ---
REPORT GIVEN TO [facility] EMT AT PT'S BEDSIDE. ALL BELONGINGS GIVEN TO EMT. VSS. PT TO [facility].
--- NOTE | 2022-05-29 00:21 | NUR ---
PT WAS PICKED UP BY [facility] AND TRANSFERRED TO [facility] IN STABLE CONDITION., BELONGINGS WERE PICKED UP
== END 2022-05-29 00:23 ==
LOC: ER 10:24
DX: R45.851 Suicidal ideations (principal); F20.9 Schizophrenia, unspecified; F31.9 Bipolar disorder, unspecified; I10 Essential (primary) hypertension; Z59.00 Homelessness unspecified; Z20.822 Contact with and (suspected) exposure to COVID-19
CPT/HCPCS: 99285; 85025; 80048; 80076; 84132 ×2; 81001; 36415; 87426; 80143; 80320; 80307; C9803; G0480

== ENCOUNTER 2023-04-24 06:45 | Emergency (ER) | payer OTHER ==
[~2023-04-24] VITALS: Ht 180.3 cm; Wt 108.9 kg
[2023-04-24 07:29] VITALS: TEMP 98.4
[2023-04-24 07:35] VITALS: BP 142/78; O2SAT 100
[2023-04-24 08:15] LABS: APPEARANCE,URINE SLIGHTLY CLOUDY (CLEAR); BILIRUBIN,URINE 2+ (NEGATIVE); BLOOD, URINE 1+ Ery/uL (NEGATIVE); COLOR,URINE YELLOW (YELLOW); KETONES,URINE NEGATIVE (NEGATIVE); LEUKOCYTE ESTERASE ,URINE NEGATIVE (NEGATIVE); NITRITE, URINE NEGATIVE (NEGATIVE); PH,URINE 5.5 (5.0-8.0); PROTEIN,URINE TRACE mg/dl (NEGATIVE); UGLUCOSE NEGATIVE (NEGATIVE); UROBILINOGEN,URINE 0.2 EU/dL (0.2)
[2023-04-24 08:20] LABS: BARBITURATE, URINE NEGATIVE (NEGATIVE); BENZODIAZEPINE, URINE NEGATIVE (NEGATIVE); CANNABINOID, URINE NEGATIVE (NEGATIVE); COCCAINE, URINE NEGATIVE (NEGATIVE); OPIATE, URINE NEGATIVE (NEGATIVE); PHENCYCLIDINE SCREEN,URINE NEGATIVE (NEGATIVE)
[2023-04-24 08:21] LABS: AMPHETAMINE, URINE POSITIVE (NEGATIVE)
[2023-04-24 08:43] LABS: ADD URINE CULTURE YES; BACTERIA,URINE Few /HPF (None Seen); SQUAMOUS EPITHELIAL CELL,UR Rare /HPF (None Seen)
[2023-04-24 08:54] LABS: BASOPHILS # (AUTO) 0.1 K/uL (0.0-0.2); BASOPHILS % (AUTO) 1.2 % (0.0-2.0); EOSINOPHILS # (AUTO) 0.5 K/uL (0.0-0.7); EOSINOPHILS % (AUTO) 3.9 % (0.0-6.0); HEMATOCRIT 46 % (39-51); HEMOGLOBIN 14.9 g/dL (13.5-17.5); LYMPHOCYTES # (AUTO) 3.1 K/uL (0.8-4.8); MEAN CORPUSCULAR HEMOGLOBIN 29 PG (26.0-33.0); MEAN CORPUSCULAR HGB CONC 32 g/dl (31.0-36.0); MEAN CORPUSCULAR VOLUME 89 fL (80-96); MONOCYTES # (AUTO) 0.5 K/uL (0.1-1.30); MONOCYTES % (AUTO) 4.4 % (2.0-12.0); NEUTROPHILS # (AUTO) 8.1 K/uL (1.8-8.9); NEUTROPHILS % (AUTO) 65.5 % (43.0-81.0); PLATELET COUNT (AUTO) 579 K/uL (150-450); RED CELL DISTRIBUTION WIDTH 15.3 % (11.5-15.0); WHITE BLOOD COUNT (AUTO) 12.4 K/uL (4.3-11.0)
[2023-04-24 09:28] LABS: CALCIUM, SERUM 9.5 mg/dL (8.5-10.1); CARBON DIOXIDE 24 mmol/L (21-32); CHLORIDE 103 mmol/L (98-107); CREATININE 0.9 mg/dL (0.6-1.3); GLUCOSE 104 mg/dL (74-106); POTASSIUM 3.5 mmol/L (3.5-5.1); SODIUM SERUM 139 mmol/L (136-145); UREA NITROGEN, BLOOD 7 mg/dL (7-18)
[2023-04-24 09:34] LABS: ALANINE AMINOTRANSFERASE 34 U/L (12-78); ALBUMIN 4.1 g/dL (3.4-5.0); ALKALINE PHOSPHATASE 125 U/L (46-116); ASPARTATE AMINOTRANSFERASE 18 U/L (15-37); BILIRUBIN,DIRECT 0.1 mg/dL (0.0-0.2); BILIRUBIN,TOTAL 0.4 mg/dL (0.2-1.0); SALICYLATE 3.9 mg/dL (2.8-20.0); TOTAL PROTEIN, SERUM 8.3 g/dL (6.4-8.2)
[2023-04-24 09:35] LABS: ACETAMINOPHEN 0 ug/ml (10-30); ALCOHOL, BLOOD < 3 mg/dL (0-10)
== END 2023-04-24 16:00 ==
LOC: ER 06:45
DX: I10 Essential (primary) hypertension (principal); F31.9 Bipolar disorder, unspecified; F20.9 Schizophrenia, unspecified; F17.200 Nicotine dependence, unspecified, uncomplicated; F19.10 Other psychoactive substance abuse, uncomplicated; Z20.822 Contact with and (suspected) exposure to COVID-19; Z60.2 Problems related to living alone
CPT/HCPCS: 99285; 85025; 80048; 87086; 80076; 81001; 36415; 87426; 80143; 80320; 80307; C9803; G0480

== ENCOUNTER 2023-05-18 00:06 | Emergency (ER) | payer OTHER ==
[~2023-05-18] VITALS: Ht 180.3 cm; Wt 108.9 kg
[2023-05-18 02:31] LABS: BASOPHILS # (AUTO) 0.1 K/uL (0.0-0.2); BASOPHILS % (AUTO) 0.8 % (0.0-2.0); EOSINOPHILS # (AUTO) 0.2 K/uL (0.0-0.7); EOSINOPHILS % (AUTO) 1.4 % (0.0-6.0); HEMATOCRIT 50 % (39-51); HEMOGLOBIN 16.4 g/dL (13.5-17.5); LYMPHOCYTES # (AUTO) 1.7 K/uL (0.8-4.8); LYMPHOCYTES % (AUTO) 10.8 % (20.0-44.0); MEAN CORPUSCULAR HEMOGLOBIN 29 PG (26.0-33.0); MEAN CORPUSCULAR HGB CONC 33 g/dl (31.0-36.0); MEAN CORPUSCULAR VOLUME 87 fL (80-96); MONOCYTES # (AUTO) 0.7 K/uL (0.1-1.30); MONOCYTES % (AUTO) 4.7 % (2.0-12.0); NEUTROPHILS # (AUTO) 12.9 K/uL (1.8-8.9); NEUTROPHILS % (AUTO) 82.3 % (43.0-81.0); PLATELET COUNT (AUTO) 515 K/uL (150-450); RED BLOOD CELL COUNT(AUTO) 5.71 MIL/uL (4.5-6.0); RED CELL DISTRIBUTION WIDTH 15.5 % (11.5-15.0); WHITE BLOOD COUNT (AUTO) 15.7 K/uL (4.3-11.0)
[2023-05-18 02:39] LABS: CALCIUM, SERUM 9.7 mg/dL (8.5-10.1); CARBON DIOXIDE 29 mmol/L (21-32); CHLORIDE 99 mmol/L (98-107); GLUCOSE 104 mg/dL (74-106); POTASSIUM 3.6 mmol/L (3.5-5.1); SODIUM SERUM 138 mmol/L (136-145); UREA NITROGEN, BLOOD 15 mg/dL (7-18)
[2023-05-18 02:44] LABS: ALANINE AMINOTRANSFERASE 31 U/L (12-78); ALBUMIN 4.6 g/dL (3.4-5.0); ALKALINE PHOSPHATASE 146 U/L (46-116); ASPARTATE AMINOTRANSFERASE 14 U/L (15-37); BILIRUBIN,DIRECT 0.2 mg/dL (0.0-0.2); BILIRUBIN,TOTAL 0.9 mg/dL (0.2-1.0); TOTAL PROTEIN, SERUM 9.3 g/dL (6.4-8.2)
[2023-05-18 02:48] LABS: ACETAMINOPHEN <10 ug/ml (10-30); ALCOHOL, BLOOD < 3 mg/dL (0-10); SALICYLATE 0.9 mg/dL (2.8-20.0)
[2023-05-18 17:00] LABS: APPEARANCE,URINE CLEAR (CLEAR); BILIRUBIN,URINE 1+ (NEGATIVE); BLOOD, URINE 1+ Ery/uL (NEGATIVE); COLOR,URINE YELLOW (YELLOW); KETONES,URINE NEGATIVE (NEGATIVE); LEUKOCYTE ESTERASE ,URINE NEGATIVE (NEGATIVE); NITRITE, URINE NEGATIVE (NEGATIVE); PH,URINE 5.5 (5.0-8.0); PROTEIN,URINE TRACE mg/dl (NEGATIVE); UGLUCOSE NEGATIVE (NEGATIVE); UROBILINOGEN,URINE 0.2 EU/dL (0.2)
[2023-05-18 17:05] LABS: BARBITURATE, URINE NEGATIVE (NEGATIVE); BENZODIAZEPINE, URINE NEGATIVE (NEGATIVE); CANNABINOID, URINE NEGATIVE (NEGATIVE); COCCAINE, URINE NEGATIVE (NEGATIVE); OPIATE, URINE NEGATIVE (NEGATIVE); PHENCYCLIDINE SCREEN,URINE NEGATIVE (NEGATIVE)
[2023-05-18 17:10] LABS: ADD URINE CULTURE NO; BACTERIA,URINE Few /HPF (None Seen); WBC,URINE 0-2 /HPF (0-3)
[2023-05-18 17:11] LABS: SQUAMOUS EPITHELIAL CELL,UR Few /HPF (None Seen)
[2023-05-18 17:14] LABS: AMPHETAMINE, URINE POSITIVE (NEGATIVE)
[2023-05-18 20:44] VITALS: BP 135/87; TEMP 98.1; O2SAT 98
== END 2023-05-18 20:44 ==
LOC: ER 00:09
DX: R45.851 Suicidal ideations (principal); I10 Essential (primary) hypertension; F31.9 Bipolar disorder, unspecified; F20.9 Schizophrenia, unspecified; F17.200 Nicotine dependence, unspecified, uncomplicated; Z20.822 Contact with and (suspected) exposure to COVID-19; Z98.890 Other specified postprocedural states
CPT/HCPCS: 99285; 85025; 80048; 80076; 81001; 36415; 87426; 80143; 80320; 80307; C9803; G0480

== ENCOUNTER 2023-10-24 17:47 | Emergency (ER) | payer OTHER ==
[~2023-10-24] VITALS: Ht 180.3 cm; Wt 104.3 kg
[2023-10-24 18:24] VITALS: BP 140/88; TEMP 98; O2SAT 99
[2023-10-24 19:10] LABS: BASOPHILS # (AUTO) 0.1 K/uL (0.0-0.2); BASOPHILS % (AUTO) 0.7 % (0.0-2.0); EOSINOPHILS # (AUTO) 0.1 K/uL (0.0-0.7); EOSINOPHILS % (AUTO) 0.5 % (0.0-6.0); HEMATOCRIT 44 % (39-51); HEMOGLOBIN 14.7 g/dL (13.5-17.5); LYMPHOCYTES # (AUTO) 3.9 K/uL (0.8-4.8); LYMPHOCYTES % (AUTO) 28.9 % (20.0-44.0); MEAN CORPUSCULAR HEMOGLOBIN 29 PG (26.0-33.0); MEAN CORPUSCULAR HGB CONC 34 g/dl (31.0-36.0); MEAN CORPUSCULAR VOLUME 87 fL (80-96); MONOCYTES # (AUTO) 0.9 K/uL (0.1-1.30); MONOCYTES % (AUTO) 6.6 % (2.0-12.0); NEUTROPHILS # (AUTO) 8.6 K/uL (1.8-8.9); NEUTROPHILS % (AUTO) 63.3 % (43.0-81.0); PLATELET COUNT (AUTO) 388 K/uL (150-450); RED BLOOD CELL COUNT(AUTO) 5.03 MIL/uL (4.5-6.0); RED CELL DISTRIBUTION WIDTH 15.6 % (11.5-15.0); WHITE BLOOD COUNT (AUTO) 13.5 K/uL (4.3-11.0)
[2023-10-24 19:13] LABS: APPEARANCE,URINE CLEAR (CLEAR); BILIRUBIN,URINE 1+ (NEGATIVE); BLOOD, URINE 3+ Ery/uL (NEGATIVE); COLOR,URINE YELLOW (YELLOW); KETONES,URINE NEGATIVE (NEGATIVE); LEUKOCYTE ESTERASE ,URINE NEGATIVE (NEGATIVE); NITRITE, URINE NEGATIVE (NEGATIVE); PROTEIN,URINE TRACE mg/dl (NEGATIVE); UGLUCOSE NEGATIVE (NEGATIVE)
[2023-10-24 19:20] LABS: CALCIUM, SERUM 8.8 mg/dL (8.5-10.1); CARBON DIOXIDE 26 mmol/L (21-32); CHLORIDE 100 mmol/L (98-107); GLUCOSE 129 mg/dL (74-106); SODIUM SERUM 139 mmol/L (136-145); UREA NITROGEN, BLOOD 12 mg/dL (7-18)
[2023-10-24 19:22] LABS: AMPHETAMINE, URINE NEGATIVE (NEGATIVE); BARBITURATE, URINE NEGATIVE (NEGATIVE); BENZODIAZEPINE, URINE NEGATIVE (NEGATIVE); CANNABINOID, URINE NEGATIVE (NEGATIVE); COCCAINE, URINE NEGATIVE (NEGATIVE); OPIATE, URINE NEGATIVE (NEGATIVE); PHENCYCLIDINE SCREEN,URINE NEGATIVE (NEGATIVE)
[2023-10-24 19:26] LABS: ALANINE AMINOTRANSFERASE 54 U/L (12-78); ALBUMIN 3.7 g/dL (3.4-5.0); ALKALINE PHOSPHATASE 119 U/L (46-116); ASPARTATE AMINOTRANSFERASE 22 U/L (15-37); BILIRUBIN,DIRECT 0.2 mg/dL (0.0-0.2); BILIRUBIN,TOTAL 0.9 mg/dL (0.2-1.0)
[2023-10-24 19:30] LABS: ACETAMINOPHEN <10 ug/ml (10-30); ALCOHOL, BLOOD < 3 mg/dL (0-10)
[2023-10-24 19:31] LABS: ADD URINE CULTURE NO; BACTERIA,URINE None seen /HPF (None Seen); MUCUS,URINE Few /LPF (None Seen); SQUAMOUS EPITHELIAL CELL,UR None Seen /HPF (None Seen); WBC,URINE NONE SEEN /HPF (0-3)
[2023-10-24] MEDS ORDERED: POTASSIUM CHLORIDE 20 MEQ TAB.PRT.SR PO ONE (22:59)
[2023-10-24] MEDS: POTASSIUM CHLORIDE 20 MEQ TAB.PRT.SR PO ONE (23:02)
[2023-10-25] MEDS ORDERED: AMOX-430 PO (11:46)
[2023-10-25] MEDS ORDERED: OLAN5TAB3 PO (11:46)
== END 2023-10-25 01:02 ==
LOC: ER 17:52
DX: R45.851 Suicidal ideations (principal); I10 Essential (primary) hypertension; F20.9 Schizophrenia, unspecified; F31.9 Bipolar disorder, unspecified; F17.200 Nicotine dependence, unspecified, uncomplicated; Z98.890 Other specified postprocedural states; Z20.822 Contact with and (suspected) exposure to COVID-19
CPT/HCPCS: 36415; 80048-TC; 80076-TC; 81001; 85025-TC; G0480

== ENCOUNTER 2023-10-25 06:45 | Emergency (ER) | payer OTHER ==
[~2023-10-25] VITALS: Ht 180.3 cm; Wt 104.3 kg
[2023-10-25 08:10] LABS: APPEARANCE,URINE CLEAR (CLEAR); BILIRUBIN,URINE NEGATIVE (NEGATIVE); BLOOD, URINE 2+ Ery/uL (NEGATIVE); COLOR,URINE YELLOW (YELLOW); KETONES,URINE NEGATIVE (NEGATIVE); LEUKOCYTE ESTERASE ,URINE NEGATIVE (NEGATIVE); NITRITE, URINE NEGATIVE (NEGATIVE); PROTEIN,URINE NEGATIVE (NEGATIVE); UGLUCOSE NEGATIVE (NEGATIVE)
[2023-10-25 08:14] LABS: BASOPHILS # (AUTO) 0.1 K/uL (0.0-0.2); BASOPHILS % (AUTO) 0.8 % (0.0-2.0); EOSINOPHILS # (AUTO) 0.1 K/uL (0.0-0.7); HEMATOCRIT 43 % (39-51); HEMOGLOBIN 14.7 g/dL (13.5-17.5); LYMPHOCYTES # (AUTO) 2.5 K/uL (0.8-4.8); LYMPHOCYTES % (AUTO) 27.1 % (20.0-44.0); MEAN CORPUSCULAR HEMOGLOBIN 29 PG (26.0-33.0); MEAN CORPUSCULAR HGB CONC 34 g/dl (31.0-36.0); MEAN CORPUSCULAR VOLUME 86 fL (80-96); MONOCYTES # (AUTO) 0.5 K/uL (0.1-1.30); MONOCYTES % (AUTO) 5.6 % (2.0-12.0); NEUTROPHILS % (AUTO) 65.5 % (43.0-81.0); PLATELET COUNT (AUTO) 370 K/uL (150-450); RED BLOOD CELL COUNT(AUTO) 5.03 MIL/uL (4.5-6.0); RED CELL DISTRIBUTION WIDTH 15.1 % (11.5-15.0); WHITE BLOOD COUNT (AUTO) 9.2 K/uL (4.3-11.0)
[2023-10-25 08:21] LABS: CALCIUM, SERUM 8.6 mg/dL (8.5-10.1); CARBON DIOXIDE 26 mmol/L (21-32); CHLORIDE 103 mmol/L (98-107); CREATININE 0.8 mg/dL (0.6-1.3); GLUCOSE 144 mg/dL (74-106); POTASSIUM 3.5 mmol/L (3.5-5.1); SODIUM SERUM 137 mmol/L (136-145); UREA NITROGEN, BLOOD 11 mg/dL (7-18)
[2023-10-25 08:27] LABS: ALANINE AMINOTRANSFERASE 52 U/L (12-78); ALBUMIN 3.6 g/dL (3.4-5.0); ALKALINE PHOSPHATASE 121 U/L (46-116); ASPARTATE AMINOTRANSFERASE 25 U/L (15-37); BILIRUBIN,DIRECT 0.2 mg/dL (0.0-0.2)
[2023-10-25 08:50] LABS: ALCOHOL, BLOOD < 3 mg/dL (0-10)
[2023-10-25 09:13] LABS: RBC,URINE 21-50 /HPF (0-2); WBC,URINE 0-2 /HPF (0-3)
[2023-10-25 09:14] LABS: ADD URINE CULTURE NO; BACTERIA,URINE 1+ /HPF (None Seen); SQUAMOUS EPITHELIAL CELL,UR None Seen /HPF (None Seen)
[2023-10-25] MEDS ORDERED: BENZOIN COMPOUND TINCT 60 ML BOTTLE ONE (11:33)
[2023-10-25] MEDS ORDERED: AMOX-430 PO (11:46)
[2023-10-25] MEDS ORDERED: OLAN5TAB3 PO (11:46)
[2023-10-25 11:55] VITALS: BP 142/89; TEMP 98.9; O2SAT 98
== END 2023-10-25 11:56 | disposition home or self-care (01) ==
LOC: ER 06:45
DX: S93.401A Sprain of unspecified ligament of right ankle, initial encounter (principal); R45.851 Suicidal ideations; I10 Essential (primary) hypertension; F23 Brief psychotic disorder; F10.10 Alcohol abuse, uncomplicated; F19.10 Other psychoactive substance abuse, uncomplicated; F17.200 Nicotine dependence, unspecified, uncomplicated; K52.9 Noninfective gastroenteritis and colitis, unspecified; Z87.19 Personal history of other diseases of the digestive system; Z98.890 Other specified postprocedural states; Z59.00 Homelessness unspecified; Z20.822 Contact with and (suspected) exposure to COVID-19; W01.0XXA Fall on same level from slipping, tripping and stumbling without subsequent striking against object, initial encounter; Y93.89 Activity, other specified; Y92.89 Other specified places as the place of occurrence of the external cause; Y99.8 Other external cause status; Y90.9 Presence of alcohol in blood, level not specified
CPT/HCPCS: 36415; 73610-TC; 80048-TC; 80076-TC; 81001; 85025-TC; G0480

== ENCOUNTER 2024-05-16 15:16 | Emergency (ER) | payer MEDICAID, OTHER ==
[~2024-05-16] VITALS: Ht 177.8 cm; Wt 104.3 kg
[~2024-05-16 15:16] MED LIST: AMOX-430 PO; OLAN5TAB3 PO
[2024-05-16 16:20] LABS: BASOPHILS % (AUTO) 0.2 % (0.0-2.0); EOSINOPHILS % (AUTO) 0.6 % (0.0-6.0); HEMATOCRIT 32 % (39-51); HEMOGLOBIN 10.5 g/dL (13.5-17.5); LYMPHOCYTES # (AUTO) 0.5 K/uL (0.8-4.8); LYMPHOCYTES % (AUTO) 8.7 % (20.0-44.0); MEAN CORPUSCULAR HEMOGLOBIN 30 PG (26.0-33.0); MEAN CORPUSCULAR HGB CONC 33 g/dl (31.0-36.0); MEAN CORPUSCULAR VOLUME 90 fL (80-96); MONOCYTES # (AUTO) 0.5 K/uL (0.1-1.30); MONOCYTES % (AUTO) 9.1 % (2.0-12.0); NEUTROPHILS # (AUTO) 4.6 K/uL (1.8-8.9); NEUTROPHILS % (AUTO) 81.4 % (43.0-81.0); PLATELET COUNT (AUTO) 223 K/uL (150-450); RED BLOOD CELL COUNT(AUTO) 3.54 MIL/uL (4.5-6.0); RED CELL DISTRIBUTION WIDTH 14.6 % (11.5-15.0); WHITE BLOOD COUNT (AUTO) 5.6 K/uL (4.3-11.0)
[2024-05-16 17:00] LABS: CALCIUM, SERUM 8.1 mg/dL (8.5-10.1); CARBON DIOXIDE 29 mmol/L (21-32); CHLORIDE 112 mmol/L (98-107); CREATININE 0.9 mg/dL (0.6-1.3); GLUCOSE 124 mg/dL (74-106); POTASSIUM 4.2 mmol/L (3.5-5.1); SODIUM SERUM 147 mmol/L (136-145); UREA NITROGEN, BLOOD 26 mg/dL (7-18)
[2024-05-16 17:07] LABS: ACETAMINOPHEN < 10 ug/ml (10-30); ALANINE AMINOTRANSFERASE 103 U/L (12-78); ALBUMIN 2.3 g/dL (3.4-5.0); ALCOHOL, BLOOD < 3 mg/dL (0-10); ALKALINE PHOSPHATASE 46 U/L (46-116); ASPARTATE AMINOTRANSFERASE 165 U/L (15-37); BILIRUBIN,DIRECT 0.1 mg/dL (0.0-0.2); BILIRUBIN,TOTAL 0.2 mg/dL (0.2-1.0); TOTAL PROTEIN, SERUM 6.4 g/dL (6.4-8.2)
[2024-05-16 17:08] LABS: SALICYLATE 1.6 mg/dL (2.8-20.0)
[2024-05-16 18:19] LABS: APPEARANCE,URINE CLEAR (CLEAR); BILIRUBIN,URINE 1+ (NEGATIVE); BLOOD, URINE 2+ Ery/uL (NEGATIVE); COLOR,URINE YELLOW (YELLOW); KETONES,URINE 2+ mg/dL (NEGATIVE); LEUKOCYTE ESTERASE ,URINE NEGATIVE (NEGATIVE); NITRITE, URINE NEGATIVE (NEGATIVE); PROTEIN,URINE 1+ mg/dl (NEGATIVE); UGLUCOSE NEGATIVE (NEGATIVE); UROBILINOGEN,URINE 0.2 EU/dL (0.2)
[2024-05-16 18:26] LABS: MUCUS,URINE Many /LPF (None Seen)
[2024-05-16 18:27] LABS: ADD URINE CULTURE NO; BACTERIA,URINE Rare /HPF (None Seen); SQUAMOUS EPITHELIAL CELL,UR None Seen /HPF (None Seen); WBC,URINE 0-2 /HPF (0-3)
[2024-05-16 18:32] LABS: BARBITURATE, URINE NEGATIVE (NEGATIVE); BENZODIAZEPINE, URINE NEGATIVE (NEGATIVE); CANNABINOID, URINE NEGATIVE (NEGATIVE); COCCAINE, URINE NEGATIVE (NEGATIVE); OPIATE, URINE NEGATIVE (NEGATIVE); PHENCYCLIDINE SCREEN,URINE NEGATIVE (NEGATIVE)
[2024-05-16 18:33] LABS: AMPHETAMINE, URINE POSITIVE (NEGATIVE)
[2024-05-16 23:20] VITALS: BP 132/95; TEMP 98.4; O2SAT 99
== END 2024-05-16 23:20 | disposition home or self-care (01) ==
LOC: ER 15:57
DX: Z00.8 Encounter for other general examination (principal); I10 Essential (primary) hypertension; F20.9 Schizophrenia, unspecified; F31.9 Bipolar disorder, unspecified; F17.200 Nicotine dependence, unspecified, uncomplicated; Z59.00 Homelessness unspecified; Z20.822 Contact with and (suspected) exposure to COVID-19
CPT/HCPCS: 36415; 80048-TC; 80076-TC; 81001; 85025-TC; G0480

== ENCOUNTER 2024-12-11 15:45 | Emergency (ER) | payer MEDICAID ==
[~2024-12-11] VITALS: Ht 180.3 cm; Wt 106.6 kg
[2024-12-11 15:55] VITALS: BP 113/71; TEMP 98.6
[2024-12-11] MEDS ORDERED: MAG HYDROX/AL HYDROX/SIMETH 30 ML UDC ONE (16:37)
[2024-12-11] MEDS: TRAMADOL HCL 50 MG TABLET PO ONE (16:38)
[2024-12-11] MEDS ORDERED: TRAMADOL HCL 50 MG TABLET ONE (16:38)
[2024-12-11] MEDS: MAG HYDROX/AL HYDROX/SIMETH 30 ML UDC PO ONE (16:41)
[2024-12-11] MEDS ORDERED: CYCL5TAB PO (17:07)
[2024-12-11] MEDS ORDERED: KETO10TA2 PO (17:07)
[2024-12-11 18:11] VITALS: O2SAT 98
== END 2024-12-11 18:13 | disposition home or self-care (01) ==
LOC: ER 15:49
DX: M25.561 Pain in right knee (principal); I10 Essential (primary) hypertension; F31.9 Bipolar disorder, unspecified; F20.9 Schizophrenia, unspecified; F17.200 Nicotine dependence, unspecified, uncomplicated; Z59.00 Homelessness unspecified; Z79.899 Other long term (current) drug therapy; W17.89XA Other fall from one level to another, initial encounter; Y93.89 Activity, other specified; Y92.89 Other specified places as the place of occurrence of the external cause; Y99.8 Other external cause status
CPT/HCPCS: 73564-TC

== ENCOUNTER 2024-12-19 16:16 | Emergency (ER) | payer MEDICAID ==
[~2024-12-19] VITALS: Ht 180.3 cm; Wt 108.9 kg
[~2024-12-19 16:16] MED LIST changes: +CYCL5TAB PO; +KETO10TA2 PO
[2024-12-19] MEDS ORDERED: ACETAMINOPHEN 325 MG TABLET ONE (17:05)
[2024-12-19] MEDS ORDERED: KETOROLAC TROMETHAMINE 15 MG/ML VIAL ONE (17:05)
[2024-12-19] MEDS: KETOROLAC TROMETHAMINE 15 MG/ML VIAL IM ONE (17:14)
[2024-12-19] MEDS: ACETAMINOPHEN 325 MG TABLET PO ONE (17:14)
[2024-12-19] MEDS ORDERED: IBUP-1953 PO (17:46)
[2024-12-19] MEDS: BACITRACIN ZINC OINT PACKET 1 EA PACKET TP ONE (18:09)
[2024-12-19 18:14] VITALS: BP 140/83; TEMP 98.8; O2SAT 99
== END 2024-12-19 18:15 | disposition home or self-care (01) ==
LOC: ER 17:19
DX: M54.50 Low back pain, unspecified (principal); Z93.3 Colostomy status; I10 Essential (primary) hypertension; F31.9 Bipolar disorder, unspecified; F20.9 Schizophrenia, unspecified; F17.200 Nicotine dependence, unspecified, uncomplicated; Z59.00 Homelessness unspecified; Z79.899 Other long term (current) drug therapy
CPT/HCPCS: 99283; 96372; 72100; J1885

== ENCOUNTER → 2024-12-20 | Emergency (ER) | payer MEDICAID ==
[~2024-12-20] VITALS: Ht 180.3 cm; Wt 108.9 kg
[~2024-12-20] MED LIST changes: +IBUP-1953 PO
[2024-12-20 02:40] VITALS: BP 130/70; TEMP 98.2; O2SAT 98
== END | disposition left against medical advice (07) ==
LOC: ER 02:22
DX: Z00.8 Encounter for other general examination (principal); Z53.21 Procedure and treatment not carried out due to patient leaving prior to being seen by health care provider